=== PATIENT | female | born 1960 | race Caucasian/White ===

== ENCOUNTER 2017-02-12 08:10 | Day surgery (SDC) | payer BC ==
[2017-02-10 16:08] LABS: Urine Bilirubin Negative (Negative); Urine Blood Negative /uL (Negative); Urine Color Yellow (Yellow); Urine Glucose Normal (Normal); Urine Ketone Negative (Negative); Urine Nitrite Negative (Negative); Urine RBC 1 /hpf (0 - 4); Urine Squamous Epithelial Cell FEW /hpf (<5); Urine Urobilinogen Normal (Negative); Urine pH 6.5 (5.0-8.0)
[2017-02-10 16:18] LABS: Basophils # (auto) 0 uL; Basophils % (auto) 0.6 % (0.0-2.0); Eosinophils # (auto) 0.1 uL; Eosinophils % (auto) 1.2 % (0.0-7.0); Hematocrit 47.2 % (36.0-46.0); Hemoglobin 15.6 g/dL (12.2-16.2); Lymphocytes # (auto) 2.1 uL; Lymphocytes % (auto) 25.7 % (10.0-50.0); Mean Corpuscular Hemoglobin 30.9 pg (28.0-32.0); Mean Corpuscular Volume 93.6 fL (80.0-100.0); Mean Platelet Volume 8.3 fL (7.4-10.4); Monocytes # (auto) 0.6 uL; Monocytes % (auto) 7.1 % (0.0-12.0); Neutrophils # (auto) 5.2 uL; Neutrophils % (auto) 65.4 % (37.0-80.0); Platelet Count (auto) 290 10^3/uL (140-450); Red Cell Distribution Width 14.4 % (11.6-16.0)
[2017-02-10 16:30] LABS: Albumin 3.7 g/dL (3.4-5.0); Bilirubin, Total 0.3 mg/dL (0.2-1.0); Calcium 8.8 mg/dL (8.5-10.1); Total Protein 6.8 g/dL (6.4-8.2)
[2017-02-10 16:36] LABS: Partial Thromboplastin Time 30.1 sec (22.64-33.71); Prothrombin Time 9.5 sec (9.37-12.3)
[2017-02-10 16:37] LABS: INR 0.87 (0.9-1.15)
[~2017-02-12] VITALS: Ht 162.6 cm; Wt 63.5 kg
[~2017-02-12 08:10] MED LIST: ASACOL HD800 MG PO; ATEN-60 PO; CARI-316 PO; DIPH-232 PO; ESTR0.5T8 PO; FLUO1TAB3 PO; FLUT50SP13; GABA-497 PO; IBAN150T8 PO; LORA-622 PO; MEMA28CA OR; NOR10T PO; PANT40TA2 PO; PIRO10CA PO; RANI-226 PO; SIMV-8 PO; THYR30TA PO; [UNRECOGNIZED DRUG - CODE] OR; [UNRECOGNIZED DRUG - CODE] SC
[2017-02-12] MEDS ORDERED: ceFAZolin 1GM/50ML D5W 50 ML IV ONE (08:17)
[2017-02-12] MEDS ORDERED: LACTATED RINGER'S 1,000 ML IV SCH (09:55)
[2017-02-12] MEDS ORDERED: ONDANSETRON HCL 4 MG/2 ML VIAL IV PRN (10:00)
[2017-02-12] MEDS ORDERED: LIDOCAINE 1% HCL (LOCAL ANESTH.) INJ 20ML MDV ONE (11:25)
[2017-02-12] MEDS ORDERED: SUCCINYLCHOLINE CHLORIDE 20 MG/ML 10ML VIAL IV ONE ×2 (11:50)
[2017-02-12] MEDS ORDERED: MIDAZOLAM HCL 1MG/1ML-2 ML VIAL ONE (12:03)
[2017-02-12] MEDS ORDERED: DEXAMETHASONE SOD PHOS 10MG/1ML VIAL INJ ONE (12:04)
[2017-02-12] MEDS ORDERED: ONDANSETRON HCL 4 MG/2 ML VIAL ONE (12:04)
[2017-02-12] MEDS ORDERED: KETOROLAC TROMETH 60MG/2ML VIAL IM ONE (12:04)
[2017-02-12] MEDS ORDERED: GLYCOPYRROLATE 0.2 MG/ML 1ML VIAL ONE (12:04)
[2017-02-12] MEDS ORDERED: fentaNYL CITRATE 100 MCG/2 ML VL ONE ×2 (12:05→13:16)
[2017-02-12] MEDS ORDERED: CONJ ESTROGENS 0.625MG/GM VAG CRM 30GM PV ONE (12:39)
[2017-02-12] MEDS ORDERED: ONDANSETRON HCL 4 MG/2 ML VIAL IV ONE (13:30)
[2017-02-12] MEDS ORDERED: LABETALOL HCL 5 MG/ML 4ML SYRINGE IV PRN (13:30)
[2017-02-12] MEDS ORDERED: HYDROmorphone HCL 2 MG/ML VL ONE (13:37)
[2017-02-12] MEDS: HYDROmorphone HCL 2 MG/ML VL IV PRN ×4 (13:44→14:14)
[2017-02-12 14:40] VITALS: BP 122/65
== END 2017-02-12 14:40 | disposition home or self-care (01) ==
LOC: SUR 08:10
PROVIDERS: ATTEND Obstetrics & Gynecology
DX: N81.10 Cystocele, unspecified (principal); N81.6 Rectocele; M19.90 Unspecified osteoarthritis, unspecified site; I10 Essential (primary) hypertension; K21.9 Gastro-esophageal reflux disease without esophagitis; I11.9 Hypertensive heart disease without heart failure; F32.9 Major depressive disorder, single episode, unspecified; Z90.710 Acquired absence of both cervix and uterus; F17.200 Nicotine dependence, unspecified, uncomplicated; F10.99 Alcohol use, unspecified with unspecified alcohol-induced disorder; Z88.8 Allergy status to other drugs, medicaments and biological substances
CPT/HCPCS: 36415; 57135; 57268; 80053; 81001; 85025; 85610; 85730; 87086; 88302; J0330; J0690; J1100; J1170; J1885; J2001; J2250; J2405; J3010